=== PATIENT | female | born 1985 | race Caucasian/White ===

== ENCOUNTER 2018-09-25 17:20 | Emergency (ER) | payer OTHER, MEDICAID ==
[2018-09-25] MEDS: morphine 4 MG/ML VIAL IV (17:41)
[2018-09-25] MEDS: LORAZEPAM 2 MG INJ IV (17:41)
[2018-09-25] MEDS: ONDANSETRON 4 MG INJ IV ×2 (17:41→22:17)
[2018-09-25] MEDS: SOD CHLORIDE 0.9% 1,000 ML IV (17:42)
[2018-09-25 17:56] LABS: ADD MAN DIFF? NO
[2018-09-25 17:58] LABS: BASOPHIL # 0.1 10^3/ul (0.0-0.1); BASOPHILS % 0.3 % (0.0-2.0); EOSINOPHILS # 1.4 10^3/ul (0.0-0.5); EOSINOPHILS % 9.3 % (0.0-7.0); LYMPHOCYTES # 4.7 10^3/ul (0.8-2.9); LYMPHOCYTES % 32.3 % (15.0-51.0); MEAN CORPUSCULAR HEMOGLOBIN 29.7 pg (29.0-33.0); MEAN CORPUSCULAR HGB CONC 34.1 g/dl (32.0-37.0); MEAN CORPUSCULAR VOLUME 87.1 fl (82.0-101.0); MEAN PLATELET VOLUME 9.8 fl (7.4-10.4); MONOCYTE # 0.9 10^3/ul (0.3-0.9); MONOCYTES % 6.3 % (0.0-11.0); NEUTROPHIL # 7.5 10^3/ul (1.6-7.5); NEUTROPHILS % 51.5 % (39.0-77.0); PLATELET COUNT 269 10^3/UL (140-415); RED BLOOD COUNT 5.05 10^6/ul (4.20-5.40); RED CELL DISTRIBUTION WIDTH 12.2 % (11.5-14.5)
[2018-09-25 17:58] LABS: WHITE BLOOD COUNT 14.5 10^3/ul (4.8-10.8)
[2018-09-25 18:18] LABS: INR 0.88; PT RATIO 0.9; URINE BLOOD (Dip) POC 2+ (NEGATIVE); URINE GLUCOSE (Dip) POC Negative (NEGATIVE); URINE KETONES (Dip) POC 1+ (NEGATIVE); URINE LEUKOCYTE EST (Dip) POC Trace (NEGATIVE); URINE NITRITE (Dip) POC Negative (NEGATIVE); URINE TOTAL PROTEIN POC 3+ (NEGATIVE)
[2018-09-25 18:19] LABS: ANION GAP 14 (5-13); BLOOD UREA NITROGEN 23 mg/dl (7-20); CALCIUM 10.1 mg/dl (8.4-10.2); CARBON DIOXIDE 23 mmol/L (21-31); CHLORIDE 105 mmol/L (97-110); CREATININE 0.64 mg/dl (0.44-1.00); Estimated GFR > 60 mL/min (>60); GLUCOSE 120 mg/dl (70-220); PARTIAL THROMBOPLASTIN TIME 26.5 Sec (23.0-35.0); POTASSIUM 3.1 mmol/L (3.5-5.1); SODIUM 142 mmol/L (135-144)
[2018-09-25] MEDS: IOHEXOL 100 ML (19:27)
[2018-09-25] MEDS: SOD CHLORIDE 0.9% 100 ML (19:28)
[2018-09-25] MEDS: HYDROmorphONE 2 MG/ML SYG IV (21:27)
== END 2018-09-25 22:18 | disposition short-term general hospital (02) ==
LOC: E/R 17:20
DX: I60.9 Nontraumatic subarachnoid hemorrhage, unspecified (principal); R11.10 Vomiting, unspecified
CPT/HCPCS: 36415; 70450; 70496; 80048; 81003; 81025; 85025; 85610; 85730; 96374; 96375; 96376; 99291-25